=== PATIENT | male | born 2000 | race Caucasian/White ===

== ENCOUNTER 2022-11-24 09:03 | Outpatient (CLI) | payer OTHER ==
[2022-11-24] MEDS ORDERED: Iopamidol 370 76% 100 ML VIAL ONE (12:26)
== END 2022-11-24 09:04 | disposition home or self-care (01) ==
LOC: CT 09:03
PROVIDERS: ATTEND Nurse Practitioner Family
DX: J44.9 Chronic obstructive pulmonary disease, unspecified (principal); J98.4 Other disorders of lung
CPT/HCPCS: 71260; Q9967

== ENCOUNTER 2022-12-15 17:58 | Emergency (ER) | payer OTHER ==
[2022-12-15] MEDS ORDERED: Dexameth. Sod Phosp. 10 MG/ML (CHEMO USE ONLY) ONE (18:43)
[2022-12-15] MEDS ORDERED: Ketorolac Tromethamine 30 MG/ML VIAL ONE (18:43)
== END 2022-12-15 19:07 | disposition home or self-care (01) ==
LOC: ERS 17:58
DX: H60.501 Unspecified acute noninfective otitis externa, right ear (principal); H73.91 Unspecified disorder of tympanic membrane, right ear
CPT/HCPCS: 96372; 99282; J1100; J1885

== ENCOUNTER 2024-06-04 13:38 | Outpatient (CLI) | payer OTHER | END 2024-06-04 13:39 | disposition home or self-care (01) | LOC: BICRAD 13:38 | PROVIDERS: ATTEND Nurse Practitioner Family | DX: M53.9 Dorsopathy, unspecified (principal) | CPT/HCPCS: 72100 ==